=== PATIENT | female | born 1935 | race Two or more races ===

== ENCOUNTER 2020-09-24 14:06 | Outpatient (REF) | payer MEDICARE, MEDICAID, SELFPAY ==
--- NOTE | ~2020-09-24 | US_ITS ---
EXAMINATION: US PELVIS COMPLETE CLINICAL INFORMATION: Abnormal vaginal bleeding. COMPARISON: CT abdomen and pelvis with/without contrast 07/17/2019. TECHNIQUE: Transabdominal and transvaginal imaging of pelvis were performed. FINDINGS: The uterus is anteverted and anteflexed measuring 9.0 cm in length, 4.9 cm in AP and 6.8 cm in transverse dimension. The endometrium is abnormally thickened measuring 0.2 cm for a postmenopausal patient. There is a hypoechoic lesion in the posterior body of uterus consistent with a fibroid measuring 1.0 x 1.1 x 1.1 cm. Previously it measured 2.3 x 2.0 x 1.5 cm. There are several anechoic nabothian cysts seen in the cervix; some of them are simple and somewhat complex. Right ovary measures 2.86 x 1.98 x 2.34 cm and volume 6.9 mL. It appears unremarkable. The left ovary is not seen. There is no free fluid seen in the cul-de-sac. US/US transvaginal IMPRESSION: Abnormally thickened endometrium measuring 2.02 cm. Recommend gynecological consultation. Multiple simple and complex nabothian cysts in the cervix. Normal right ovary. Left ovary not seen.
--- NOTE | ~2020-09-24 | US_ITS ---
EXAMINATION: US PELVIS COMPLETE CLINICAL INFORMATION: Abnormal vaginal bleeding. COMPARISON: CT abdomen and pelvis with/without contrast 07/17/2019. TECHNIQUE: Transabdominal and transvaginal imaging of pelvis were performed. FINDINGS: The uterus is anteverted and anteflexed measuring 9.0 cm in length, 4.9 cm in AP and 6.8 cm in transverse dimension. The endometrium is abnormally thickened measuring 0.2 cm for a postmenopausal patient. There is a hypoechoic lesion in the posterior body of uterus consistent with a fibroid measuring 1.0 x 1.1 x 1.1 cm. Previously it measured 2.3 x 2.0 x 1.5 cm. There are several anechoic nabothian cysts seen in the cervix; some of them are simple and somewhat complex. Right ovary measures 2.86 x 1.98 x 2.34 cm and volume 6.9 mL. It appears unremarkable. The left ovary is not seen. There is no free fluid seen in the cul-de-sac. US/US pelvic complete IMPRESSION: Abnormally thickened endometrium measuring 2.02 cm. Recommend gynecological consultation. Multiple simple and complex nabothian cysts in the cervix. Normal right ovary. Left ovary not seen.
== END 2020-09-24 14:07 | disposition home or self-care (01) ==
LOC: HO.US 14:06
PROVIDERS: Visit Provider Family Medicine
DX: N93.9 Abnormal uterine and vaginal bleeding, unspecified (principal)
CPT/HCPCS: 76830; 76856

== ENCOUNTER 2020-10-20 13:01 | Outpatient (REF) | payer MEDICARE, MEDICAID, SELFPAY | END 2020-10-20 13:02 | disposition home or self-care (01) | LOC: HO.LAB 13:01 | PROVIDERS: PCP Nurse Practitioner Family; Visit Provider Obstetrics & Gynecology | DX: N95.0 Postmenopausal bleeding (principal); F41.9 Anxiety disorder, unspecified; N28.89 Other specified disorders of kidney and ureter; Z88.0 Allergy status to penicillin | CPT/HCPCS: 58100; 88305; 99212 ==

== ENCOUNTER → 2020-11-10 10:55 | Outpatient (BNVA) | payer MEDICARE, MEDICAID, SELFPAY | PROVIDERS: PCP Nurse Practitioner Family; Visit Provider Obstetrics & Gynecology | DX: Z13.89 Encounter for screening for other disorder (principal) | CPT/HCPCS: Q3014 ==

== ENCOUNTER 2020-11-19 15:52 | Outpatient (REF) | payer MEDICARE, MEDICAID, SELFPAY | END 2020-11-19 15:53 | disposition home or self-care (01) | LOC: HO.LAB 15:52 | PROVIDERS: PCP Nurse Practitioner Family; Visit Provider Obstetrics & Gynecology | DX: N95.0 Postmenopausal bleeding (principal) | CPT/HCPCS: 58100; 88305 ==

== ENCOUNTER → 2020-12-09 12:07 | Outpatient (BNVA) | payer MEDICARE, MEDICAID, SELFPAY | PROVIDERS: PCP Nurse Practitioner Family; Visit Provider Obstetrics & Gynecology | DX: N95.0 Postmenopausal bleeding (principal) | CPT/HCPCS: Q3014 ==

== ENCOUNTER → 2020-12-24 15:23 | Outpatient (BNVA) | payer MEDICARE, MEDICAID, SELFPAY | PROVIDERS: PCP Nurse Practitioner Family; Visit Provider Obstetrics & Gynecology | DX: N95.0 Postmenopausal bleeding (principal) | CPT/HCPCS: 99212 ==

== ENCOUNTER 2021-01-02 11:47 | Day surgery (SDC) | payer MEDICARE, MEDICAID, SELFPAY ==
--- NOTE | 2020-12-31 12:02 | HO.ANESPROP2 ---
Documented by User: Rosita Diaz 01/01/21 11:56 HPI - Anesthesia Eval Consult details Narrative: 85yo F for D&C Diagnostic Hysteroscopy, Poss Polypectomy, Poss Myomectomy H/O mitral regurg. Last echo 2017 with pending echo ordered by cardiology. Case reviewed with Dr Benitez. OK to proceed without updated ECHO. PMFSH Active Problems Active Problems: All Active Problems (Updated 12/24/20 @ 15:40 by Nima Black MD) Postmenopausal bleeding (Acute) Past Medical History Medical History (Updated 01/02/21 @ 12:55 by Georgina Benitez) Anxiety Arthritis Asthma Chest pain Constipation Dementia Fatigue Nonrheumatic mitral valve regurgitation [place] (obstructive sleep apnea) Osteoporosis Renal mass Family History Family History Mother Lung cancer Surgical History Surgical History History of appendectomy History of colonoscopy History of removal of cyst Hx of excision of mass Social History Social History Patient Tobacco Use Status: Never used Tobacco Use of substances other than those prescribed or required for medical reasons: No Are you DNR?: No Advance Directives: No Advance Directives Information Provided: Yes Meds Allergies Allergy/AdvReac Type Severity Reaction Status Date / Time Penicillins [PENICILLINS] Allergy Severe RASH,LIP Verified 01/02/21 12:04 SWELLING penicillin V Allergy Unknown Unknown Verified 01/02/21 12:04 Home Medications Medication Instructions Recorded Confirmed Last Taken Type atorvastatin 10 mg tablet 10 mg PO DAILY 10/20/20 12/24/20 Unknown History benzonatate 100 mg capsule 100 mg PO TID 10/20/20 12/24/20 Unknown History conjugated estrogens 0.625 mg/gram 0 mg VAGINAL 10/20/20 12/24/20 Unknown History vaginal cream duloxetine 20 mg capsule,delayed 20 mg PO BID 10/20/20 12/24/20 01/02/21 09:00 History release isosorbide mononitrate 30 mg 30 mg PO DAILY 10/20/20 12/24/20 01/02/21 09:00 History tablet,extended release 24 hr magnesium oxide 400 mg (241.3 mg 400 mg PO DAILY 10/20/20 12/24/20 01/02/21 09:00 History magnesium) tablet meclizine 25 mg tablet 25 mg PO TID PRN 10/20/20 12/24/20 Unknown History melatonin 3 mg tablet 3 mg PO BEDTIME 10/20/20 12/24/20 Unknown History meloxicam 7.5 mg tablet 7.5 mg PO BID 10/20/20 12/24/20 01/02/21 09:00 History memantine 10 mg tablet 10 mg PO BID 10/20/20 12/24/20 01/02/21 09:00 History olanzapine 5 mg tablet 5 mg PO BEDTIME 10/20/20 12/24/20 Unknown History trazodone 50 mg tablet 50 mg PO BEDTIME 10/20/20 12/24/20 Unknown History Exam Exam Date and Time: December 31, 2020 1202 Narrative Narrative: Echo 2017 Mild concentric LVH Overall LV systolic function is normal with EF 60-65% LA size is normal RV is normal in size and function Mild AR Mild to mod MR. Mild post leaflet prolapse with antierior directed jet that hugs the valve and atrial valve. Trace TR C/W prev Echo, MR severity seems to have reduced. Assessment and Plan Assessment Anesthesia Assessment: Chart Reviewed Documented by User: Georgina Benitez 01/02/21 12:57 [facility] Past Medical History Medical History (Updated 01/02/21 @ 12:55 by Georgina Benitez) Anxiety Arthritis Asthma Chest pain Constipation Dementia Fatigue Nonrheumatic mitral valve regurgitation [place] (obstructive sleep apnea) Osteoporosis Renal mass Family History Family History Mother Lung cancer Family history of problems with anesthesia: No Surgical History Surgical History History of appendectomy History of colonoscopy History of removal of cyst Hx of excision of mass History of Problems with Anesthesia: No Social History Social History Patient Tobacco Use Status: Never used Tobacco Use of substances other than those prescribed or required for medical reasons: No Are you DNR?: No Advance Directives: No Advance Directives Information Provided: Yes Meds Allergies Allergy/AdvReac Type Severity Reaction Status Date / Time Penicillins [PENICILLINS] Allergy Severe RASH,LIP Verified 01/02/21 12:04 SWELLING penicillin V Allergy Unknown Unknown Verified 01/02/21 12:04 Home Medications Medication Instructions Recorded Confirmed Last Taken Type atorvastatin 10 mg tablet 10 mg PO DAILY 10/20/20 12/24/20 Unknown History benzonatate 100 mg capsule 100 mg PO TID 10/20/20 12/24/20 Unknown History conjugated estrogens 0.625 mg/gram 0 mg VAGINAL 10/20/20 12/24/20 Unknown History vaginal cream duloxetine 20 mg capsule,delayed 20 mg PO BID 10/20/20 12/24/20 01/02/21 09:00 History release isosorbide mononitrate 30 mg 30 mg PO DAILY 10/20/20 12/24/20 01/02/21 09:00 History tablet,extended release 24 hr magnesium oxide 400 mg (241.3 mg 400 mg PO DAILY 10/20/20 12/24/20 01/02/21 09:00 History magnesium) tablet meclizine 25 mg tablet 25 mg PO TID PRN 10/20/20 12/24/20 Unknown History melatonin 3 mg tablet 3 mg PO BEDTIME 10/20/20 12/24/20 Unknown History meloxicam 7.5 mg tablet 7.5 mg PO BID 10/20/20 12/24/20 01/02/21 09:00 History memantine 10 mg tablet 10 mg PO BID 10/20/20 12/24/20 01/02/21 09:00 History olanzapine 5 mg tablet 5 mg PO BEDTIME 10/20/20 12/24/20 Unknown History trazodone 50 mg tablet 50 mg PO BEDTIME 10/20/20 12/24/20 Unknown History Exam Height,Weight and Vital Signs: Vital Signs Temp Pulse Resp BP Pulse Ox 01/02/21 12:12 97.7 F 72 18 143/79 H 92 Pertinent Lab Results Pertinent Lab Results: 01/02/21: 12 lead EKG- NSR 64. T wave abnormality ? lateral ischemia Narrative Narrative: EKG on monitor with PACs, PVCs, sometimes? lack of P waves.Will obtain 12 lead EKG Airway Mallampati Class: III TM Dist: >3cm Neck ROM: Full Denture: Upper Partial: Lower Heart: Irregular Lungs: CTAB Assessment and Plan Assessment Anesthesia Assessment: Anesthesia Plan Discussed and Chart Reviewed Final Anesthetic Review NPO: Yes ASA Class: III Final Preanesthetic Review: No Changes in Pt Med Stat, Meds/Allgs Chart Reviewed, Consent Obtained/Reviewed and Anes Risks/Benef Reviewed Patient Risk: Intermediate Procedure Risk: Low Assessment/Block/Sedation in SS: Assess/Block/Sedation-SS Anesthetic Plan Anesthetic Plan: GA Disposition: Standard PACU
--- NOTE | 2021-01-02 | ECG_ITS ---
Test Reason : PREOP Blood Pressure : / mmHG Vent. Rate : 064 BPM Atrial Rate : 064 BPM P-R Int : 154 ms QRS Dur : 090 ms QT Int : 430 ms P-R-T Axes : 035 -07 110 degrees QTc Int : 443 ms Artifact in tracing Normal sinus rhythm T wave abnormality, consider lateral ischemia Abnormal ECG When compared with ECG of 13-AUG-2017 10:48, No significant change was found Referred By: Georgina Benitez Electronically Signed By:MARY CHOWDHURY
--- NOTE | 2021-01-02 12:11 | PC.NURSE ---
pt denies hx asthma.
[2021-01-02 12:12] VITALS: BP 143/79; PULSE 72; RESP 18; TEMP 36.5; O2SAT 92; BMI 34.3
[2021-01-02] MEDS: Lactated Ringers 1,000 ML 50 ML IVCONT (12:43)
--- NOTE | 2021-01-02 12:46 | MHC.SHP ---
Pre-Procedural Eval Section A The patient is an INPATIENT: No Changes since office visit: No Cold of Flu in the past 2 weeks, No New Medical Problems, No Changes in Medication and No Patient answered all questions The History & Physical has been completed within 30 days and I have reviewed it.: Yes Section B Chief Complaint: postmenopausal bleeding Allergies: Allergies Allergy/AdvReac Type Severity Reaction Status Date / Time Penicillins [PENICILLINS] Allergy Severe RASH,LIP Verified 01/02/21 12:04 SWELLING penicillin V Allergy Unknown Unknown Verified 01/02/21 12:04 Plan Diagnosis/Plan: Unchanged I have reviewed the history and physical and performed a pertinent physical examination on my patient. No changes have occurred unless specified.
--- NOTE | 2021-01-02 13:40 | P.BOP_ITS ---
Brief Operative Note Date of Service: 01/02/21 Pre-op diagnosis: Postmenopausal bleeding Post-op diagnosis: same ( endometrial polyp) Procedure: Hysteroscopy D&C, Polypectomy Surgeon: Nima Black MD Anesthesia: MAC Was an Pipe Blanks Cut Off Saw Operator used for this Procedure?: No Estimated blood loss (mL): 0 Pathology: other (Endometrial Scrapping. Polyp) Condition: stable Disposition: PACU
--- NOTE | 2021-01-02 13:40 | P.OP_ITS ---
Operative Note Operative Note Date of Service: 01/02/21 Narrative: Preop Diagnosis: postmenopausal bleeding Operation: Diagnostic Hysteroscopy, Dilataion & Curettage and polypectomy Post Op Diagnosis: Endometrial Polyp QBL: Minimal Anesthesia: MAC Surgeon: Nima Black MD Hemp Fiber Taker Off: None Complication: None Pathology: Endometrial Scrapings, Endometrial polyp Complication: None Pathology: Endometrial Scrapings, Endometrial polyp Procedure: The patient was put in the dorsal lithotomy position, scrubbed, and draped in the usual manner. A sterile speculum was inserted in the patient's vagina. The anterior lip of the cervix was grasped with a single tooth tenaculum. The cervix was dilated up to 5 mm, then the scope was inserted in the patient's uterus. Inspection revealed endometrial polyp. The Myosure Reach device was used; it was introduced through the operative channel and polypectomy done with no complications. At the end of the procedure, all instruments were taken out of the patient uterine and vaginal cavity. The single tooth tenaculum was removed and homeostasis was assured using pressure,. The patient tolerated the procedure well and was transferred to the PACU in a stable condition.
[2021-01-02 13:43] VITALS: BP 146/84; PULSE 71; RESP 16; TEMP 36.6; O2SAT 99
[2021-01-02 13:48] VITALS: BP 107/69; PULSE 71; RESP 18; O2SAT 95
[2021-01-02 13:53] VITALS: BP 105/58; PULSE 70; RESP 18; O2SAT 95
[2021-01-02 13:58] VITALS: BP 145/73; PULSE 77; RESP 18; O2SAT 95
[2021-01-02 14:13] VITALS: BP 141/65; PULSE 61; RESP 16; TEMP 36.6; O2SAT 96
== END 2021-01-02 14:30 ==
LOC: HO.SSS 11:48
PROVIDERS: PCP Nurse Practitioner Family; Visit Provider Obstetrics & Gynecology
PROC: 0UDB8ZX Extraction of Endometrium, Via Natural or Artificial Opening Endoscopic, Diagnostic (ICD-10-PCS; CPT 58558; principal; 2021-01-02 13:50)
DX: N95.0 Postmenopausal bleeding (principal); C54.1 Malignant neoplasm of endometrium; N28.89 Other specified disorders of kidney and ureter; M19.90 Unspecified osteoarthritis, unspecified site; F41.9 Anxiety disorder, unspecified; M81.0 Age-related osteoporosis without current pathological fracture; Z79.899 Other long term (current) drug therapy; Z88.0 Allergy status to penicillin
CPT/HCPCS: 58558; 36415; 81288; 88305; 88341; 88342; 93005; J1100; J2405

== ENCOUNTER → 2021-01-07 12:23 | Outpatient (BNVA) | payer MEDICARE, MEDICAID, SELFPAY | PROVIDERS: Visit Provider Obstetrics & Gynecology | DX: C54.1 Malignant neoplasm of endometrium (principal) | CPT/HCPCS: Q3014 ==

== ENCOUNTER 2021-08-13 12:55 | Outpatient (REF) | payer MEDICARE, MEDICAID, SELFPAY ==
--- NOTE | ~2021-08-13 | MM_ITS ---
EXAMINATION: MM SCREENING DIGITAL BREAST TOMOSYNTHESIS, BILATERAL CLINICAL INFORMATION: Screening. Asymptomatic. COMPARISON: Mammography: August 14, 2018 and studies dating back to November 28, 2013 TECHNIQUE: Digital breast tomosynthesis is performed in both the craniocaudal and mediolateral oblique views along with computer-aided detection (CAD). Synthesized 2D images are generated from the tomosynthesis. FINDINGS: There are scattered areas of fibroglandular density (ACR BI-RADS breast composition Category b). There are no significant masses, abnormal calcifications, or other abnormalities. MM/MM tomosynthesis screening BI IMPRESSION: There are no significant changes from prior study. ASSESSMENT: BI-RADS 1: Negative RECOMMENDATION: Routine annual mammography screening. This patient's information was entered into a reminder system with a target due date for their next mammogram.
--- NOTE | ~2021-08-13 | MM_ITS ---
EXAMINATION: BONE DENSITOMETRY CLINICAL INDICATION: Osteoporosis. COMPARISON: Previous BD dated 06/12/2019 and baseline BD dated 02/23/2011. TECHNIQUE: Using a [employer]RI ([employer]) DXA System (software version: 13.1) manufactured by [employer], dual-energy x-ray absorptiometry was performed of the lumbar spine and left hip. The images are of good technical quality. Summary results are attached. FINDINGS: AP SPINE L1-L4: Current: BMD 1.112 g/cm2, Z-score 0.8, T-score -0.6, normal, 5.3% decrease from previous, 6.4% increase from baseline (<5% change is not significant). Prior: BMD 1.174 g/cm2. Baseline: BMD 1.045 g/cm2. LEFT FEMUR, NECK: Current: BMD 0.735 g/cm2, Z-score -0.1, T-score -2.2, osteopenia. Prior: BMD 0.679 g/cm2. Baseline: BMD 0.709 g/cm2. LEFT FEMUR, TOTAL: Current: BMD 0.843 g/cm2, Z-score 0.6, T-score -1.3, osteopenia, 1.1% decrease from previous, 7.5% increase from baseline (<5% change is not significant). Prior: BMD 0.852 g/cm2. Baseline: BMD 0.784 g/cm2. IDENTIFIED RISK FACTORS: Rheumatoid arthritis, osteoporosis, menopause, hysterectomy, bilateral oophorectomy. HISTORY OF FRACTURE: None listed. MEDICATIONS: Vitamin D. MM/XR DEXA axial skeleton IMPRESSION: 1. DIAGNOSIS: Osteopenia based on the lowest T-score value of -2.2 in the femoral neck applying World Health Organization criteria. 2. 10-YEAR FRACTURE RISK PREDICTION, FRAX: Major osteoporotic fracture (clinical spine, forearm, hip or shoulder) 20.4%. Hip fracture 7.2%. 3. Treatment Recommendations: NOF guidelines recommend consideration for treatment in postmenopausal women and men age 50 and older presenting with the following: -A hip or vertebral (clinical or morphometric) fracture. -T-score less than or equal to -2.5 at the femoral neck or spine after appropriate evaluation to exclude secondary causes. -Low bone mass at the hip or spine and a 10-year fracture probability by FRAX of greater than or equal to 3% for hip fracture or greater than or equal to 20% for major osteoporotic fracture based on the [place] adapted WHO algorithm. 4. Other Recommendations: All treatment decisions require clinical judgment and consideration of individual patient factors, including patient preferences, comorbidities, previous drug use, risk factors not captured in the FRAX model (e.g. frailty, falls, vitamin D deficiency, increased bone turnover, interval significant decline in bone density) and possible under or overestimation of fracture risk by FRAX. Additional medical evaluation for secondary cause of low bone mineral density may be appropriate. FUTURE SCAN RECOMMENDATION: People with diagnosed cases of osteoporosis or at high risk for fracture should have regular bone mineral density tests. For patients eligible for Medicare, routine testing is allowed once every 2 years. The testing frequency can be increased to one year for patients who have rapidly progressing disease, those who are receiving or discontinuing medical therapy to restore bone mass, or have additional risk factors.
== END 2021-08-13 12:56 | disposition home or self-care (01) ==
LOC: HO.MAMMO 12:55
PROVIDERS: PCP Nurse Practitioner Primary Care; Visit Provider Nurse Practitioner Primary Care
DX: Z12.31 Encounter for screening mammogram for malignant neoplasm of breast (principal); Z13.820 Encounter for screening for osteoporosis; Z78.0 Asymptomatic menopausal state; M05.9 Rheumatoid arthritis with rheumatoid factor, unspecified; M85.80 Other specified disorders of bone density and structure, unspecified site; Z79.899 Other long term (current) drug therapy
CPT/HCPCS: 77063; 77067; 77080

== ENCOUNTER 2022-02-19 11:05 | Outpatient (REF) | payer MEDICARE, MEDICAID, SELFPAY ==
--- NOTE | ~2022-02-19 | XR_ITS ---
EXAMINATION: XR HIP, LEFT CLINICAL INFORMATION: Pain. COMPARISON: Radiographs dated 02/10/2011. TECHNIQUE: AP and frog-leg lateral views of the left hip. FINDINGS: Bones and soft tissues are normal. No fracture. Alignment is anatomic. Hip joint space is maintained. XR/XR hip LT min 2V IMPRESSION: Normal left hip.
== END 2022-02-19 11:06 | disposition home or self-care (01) ==
LOC: HO.XRAY 11:05
PROVIDERS: PCP Nurse Practitioner Primary Care; Visit Provider Nurse Practitioner Primary Care
DX: M25.552 Pain in left hip (principal)
CPT/HCPCS: 73502

== ENCOUNTER 2022-08-18 12:35 | Outpatient (REF) | payer MEDICARE, MEDICAID, SELFPAY ==
--- NOTE | ~2022-08-18 | MM_ITS ---
EXAMINATION: MM SCREENING DIGITAL BREAST TOMOSYNTHESIS, BILATERAL CLINICAL INFORMATION: Screening. Asymptomatic. COMPARISON: Mammography: 08/13/2021, 08/14/2018, 02/08/2018, 07/25/2017, 06/28/2017 TECHNIQUE: Digital breast tomosynthesis is performed in both the craniocaudal and mediolateral oblique views along with computer-aided detection (CAD). Synthesized 2D images are generated from the tomosynthesis. FINDINGS: There are scattered areas of fibroglandular density (ACR BI-RADS breast composition Category b). There is fine fibronodular parenchymal pattern similar to prior studies. No developing density or interval significant mass or architectural abnormality or abnormal calcifications. Incidental low left axillary tail node on MLO view is stable. The axilla and skin contours are unremarkable. No significant changes. MM/MM tomosynthesis screening BI IMPRESSION: No mammographic evidence of malignancy. ASSESSMENT: BI-RADS 2: Benign RECOMMENDATION: Routine annual mammography screening. This patient's information was entered into a reminder system with a target due date for their next mammogram.
== END 2022-08-18 12:36 | disposition home or self-care (01) ==
LOC: HO.MAMMO 12:35
PROVIDERS: Visit Provider Nurse Practitioner Primary Care
DX: Z12.31 Encounter for screening mammogram for malignant neoplasm of breast (principal)
CPT/HCPCS: 77063; 77067

== ENCOUNTER 2024-01-03 14:12 | Outpatient (REF) | payer MEDICARE, MEDICAID, SELFPAY ==
[2024-01-03 16:39] LABS: Anion Gap 9 (12-20); Blood Urea Nitrogen 14 mg/dL (9-16); Calcium 9.8 mg/dL (8.4-10.2); Carbon Dioxide 32 mmol/L (22-29); Chloride 106 mmol/L (96-108); Cholesterol 187 mg/dL (<200); Estimated Glomerular Filt Rate 56; Glucose Random 91 mg/dL (60-115); HDL Cholesterol 61 mg/dL (>40); LDL Cholesterol Calculated 106 mg/dL (<100); Potassium 4.3 mmol/L (3.3-5.1); Sodium 143 mmol/L (135-145); Triglycerides 104 mg/dL (<150)
[2024-01-03 16:43] LABS: Creatinine Urine 301.04 mg/dL; Microalbum/Creatinine Ratio Ur 6.3 ug/mg cr (<30)
== END 2024-01-03 14:13 | disposition home or self-care (01) ==
LOC: HO.HHCL 14:12
PROVIDERS: Visit Provider Nurse Practitioner Primary Care
DX: I10 Essential (primary) hypertension (principal); E78.00 Pure hypercholesterolemia, unspecified
CPT/HCPCS: 36415; 80048; 80061; 82043; 82570

== ENCOUNTER 2024-01-23 10:37 | Outpatient (AMB) | payer MEDICARE, MEDICAID, SELFPAY ==
--- NOTE | 2024-01-23 10:41 | MHC.OFFVIS ---
Vital Signs 01/23/24 10:47 Weight 192 lb BP 130/73 Blood Pressure Location Rt brachial Position Sitting Pulse 66 Intake Visit Reasons: non-healing skin lesion pentecostalism Intake Note: This patient presents for an assessment for left pentecostalism non-healing skin lesion. Patient c/o: reports no pain. Learning Disabilities Resource Teacher Required: No Accompanied by: Other Relationship Allergies Penicillins [PENICILLINS] Allergy (Severe, Verified 01/23/24 10:48) RASH,LIP SWELLING penicillin V Allergy (Unknown, Verified 01/23/24 10:48) Unknown Medication List - Last Reconciled 01/23/24 by Mihir Hall MD atorvastatin 10 mg PO DAILY benzonatate 100 mg PO TID conjugated estrogens 0 mg vaginal duloxetine 20 mg PO BID isosorbide mononitrate ER 30 mg PO DAILY magnesium oxide 400 mg PO DAILY meclizine 25 mg PO TID PRN melatonin 3 mg PO BEDTIME meloxicam 7.5 mg PO BID memantine 10 mg PO BID olanzapine 5 mg PO BEDTIME trazodone 50 mg PO BEDTIME HPI HPI non-healing skin lesion pentecostalism: Details: [age] year old female referred for skin lesion on the left pentecostalism. According to her daughter, she has had this for about 6 months. This does not seem to heal at all and seems to keep getting crusty. The crusty covering seems to peel off frequently but this would just repeat the cycle all over. This may have increased a little bit in size. She otherwise seems to be healthy for her age. [facility] Medical History (Updated 01/23/24 @ 11:02 by Mihir Hall MD) Scalp lesion Fatigue Chest pain Constipation Osteoporosis [place] (obstructive sleep apnea) Asthma Dementia Nonrheumatic mitral valve regurgitation Arthritis Anxiety Renal mass Surgical History Hx of excision of mass History of colonoscopy History of removal of cyst History of appendectomy Family History Mother Lung cancer Social History Patient Tobacco Use Status: Never used Tobacco Review of Systems Const Denies chills and Denies fever(s) Card Denies chest pain, Denies dyspnea and Denies dyspnea on exertion Resp Denies cough, Denies dyspnea and Denies dyspnea on exertion GI Denies hematochezia and Denies change in bowel habits Denies hematuria Musc Denies back pain and Denies limited range of motion Neuro Denies focal weakness and Denies convulsions Psych Denies depression and Denies mood swings Physical Exam Vital Signs: Last Vital Signs Pulse 66 01/23/24 10:47 BP 130/73 01/23/24 10:47 Const General: comfortable and no acute distress Orientation/consciousness: patient oriented x3 HEENT Other: Left temporal area - irregular, elevated crusty skin lesion, about 1 cm in widest dimension Neck Neck: Yes no lymphadenopathy Resp Auscultation: clear to auscultation bilaterally Cardio Rhythm: regular rhythm GI Palpation (GI): Soft to palpation, nontender and no guarding Neuro General: patient oriented x3 Assessment & Plan Assessment & Plan (1) Scalp lesion: Code(s): L98.9 - Disorder of the skin and subcutaneous tissue, unspecified Category: Medical Plan: She has this crusty elevated skin lesion on the left temporal area as described above. She wants to proceed with excision. I explained the technique of excision under local anesthesia. I reviewed the risks including but not limited to bleeding and infections, as well as the benefits and alternatives. She understands and wants to proceed This will be scheduled in the office under local anesthesia on her next visit. Coding Level of Care Code New Pt Level 3 (95031) Diagnoses Scalp lesion L98.9
[2024-01-23 10:47] VITALS: BP 130/73; PULSE 66
== END 2024-01-23 11:04 | disposition home or self-care (01) ==
PROVIDERS: PCP Nurse Practitioner Primary Care; Visit Provider Surgery
DX: L98.9 Disorder of the skin and subcutaneous tissue, unspecified (principal)
CPT/HCPCS: 99204

== ENCOUNTER → 2024-01-23 10:37 | Outpatient (BNVA) | payer MEDICARE, MEDICAID, SELFPAY | PROVIDERS: PCP Nurse Practitioner Primary Care; Visit Provider Surgery | DX: L98.9 Disorder of the skin and subcutaneous tissue, unspecified (principal) | CPT/HCPCS: 99202 ==

== ENCOUNTER 2024-02-01 10:58 | Outpatient (AMB) | payer MEDICARE, MEDICAID, SELFPAY ==
--- NOTE | 2024-02-01 11:00 | MHC.OFFVIS ---
Intake Visit Reasons: excision of lesion left temporal area Intake Note: Office procedure: excision of lesion left temporal area. Quill Reamer Required: No Accompanied by: Daughter Allergies Penicillins [PENICILLINS] Allergy (Severe, Verified 02/01/24 11:12) RASH,LIP SWELLING penicillin V Allergy (Unknown, Verified 02/01/24 11:12) Unknown HPI HPI excision of lesion left temporal area: Details: She is here for an excision of a skin lesion on the left temporal area. [facility] Medical History Scalp lesion Fatigue Chest pain Constipation Osteoporosis [place] (obstructive sleep apnea) Asthma Dementia Nonrheumatic mitral valve regurgitation Arthritis Anxiety Renal mass Surgical History Hx of excision of mass History of colonoscopy History of removal of cyst History of appendectomy Family History Mother Lung cancer Social History Patient Tobacco Use Status: Never used Tobacco Office Procedures Excision Details: She was in reclining position. The area of the left temporal scalp was prepped and draped. Lidocaine 1% was used for local anesthesia. I made an elliptical incision around this skin lesion using a blade 15. And this was carried down through the full-thickness of the skin and part of the subcutaneous layer. I excise this entire lesion along with part of the subcutaneous layer. The lesion was about 1.2 cm in widest dimension. I closed the incision with full-thickness nylon 4-0 interrupted sutures. Bacitracin dressings were applied and the procedure was completed. She tolerated procedure well. There were no immediate complications. [id number] scalp/neck/hands/feet/genitalia 1.1cm-2cm Procedure code (CPT) selection complete Assessment & Plan Assessment & Plan (1) Scalp lesion: Code(s): L98.9 - Disorder of the skin and subcutaneous tissue, unspecified Category: Medical Plan: Excision was done under local anesthesia. She tolerated procedure well. She was given wound care instructions. Coding Level of Care Code Procedure Only Diagnoses Scalp lesion L98.9 CPT Codes Scalp/Neck/Hands/Feet/Genetalia - CPT: 85655-[id number] scalp/neck/hands/feet/genitalia 1.1cm-2cm ([id number])
== END 2024-02-01 11:43 | disposition home or self-care (01) ==
PROVIDERS: PCP Nurse Practitioner Primary Care; Visit Provider Surgery
DX: C44.319 Basal cell carcinoma of skin of other parts of face (principal)
CPT/HCPCS: 11642

== ENCOUNTER 2024-02-01 10:58 | Outpatient (REF) | payer MEDICARE, MEDICAID, SELFPAY | END 2024-02-01 10:59 | disposition home or self-care (01) | LOC: HO.LNP 10:58 | PROVIDERS: PCP Nurse Practitioner Primary Care; Visit Provider Surgery | DX: L98.9 Disorder of the skin and subcutaneous tissue, unspecified (principal) | CPT/HCPCS: 11642; 88304; 88305 ==

== ENCOUNTER 2024-02-15 10:56 | Outpatient (AMB) | payer MEDICARE, MEDICAID, SELFPAY ==
--- NOTE | 2024-02-15 10:58 | A.OFFVIS_ITS ---
Vital Signs 02/15/24 11:00 Height 5 ft 3 in Weight 192 lb 0.009 oz BMI 34.0 Intake Visit Reasons: s/p excision of lesion left temporal area Intake Note: Patient is seen in office for post op assessment post excision of lesion left temporal area. 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 She tolerated procedure well. She is here have his sutures removed. [facility] Medical History Scalp lesion Fatigue Chest pain Constipation Osteoporosis [place] (obstructive sleep apnea) Asthma Dementia Nonrheumatic mitral valve regurgitation Arthritis Anxiety Renal mass Surgical History History of surgical removal of lesion (~02/01/24) Hx of excision of mass History of colonoscopy History of removal of cyst History of appendectomy Family History Mother Lung cancer Social History Patient Tobacco Use Status: Never used Tobacco Review of Systems Const Denies chills and Denies fever(s) Card Denies chest pain, Denies dyspnea and Denies dyspnea on exertion Resp Denies cough, Denies dyspnea and Denies dyspnea on exertion GI Denies hematochezia and Denies change in bowel habits Denies hematuria Musc Denies back pain and Denies limited range of motion Neuro Denies focal weakness and Denies convulsions Psych Denies depression and Denies mood swings Physical Exam Vital Signs: BMI result Body Mass Index 34.0 Const General: comfortable and no acute distress HEENT Other: Excision site on the left temporal area is well healed, not infected, sutures intact Assessment & Plan Assessment & Plan (1) Scalp lesion: Code(s): L98.9 - Disorder of the skin and subcutaneous tissue, unspecified Category: Medical Plan: Status post excision. Her incision is well healed. I removed all her sutures. The wound edges remained well apposed. Her path report shows a basal cell carcinoma. The margins were negative. She does not require any further intervention for this. Coding Level of Care Code Global (52274) Diagnoses Scalp lesion L98.9
[2024-02-15 11:00] VITALS: BMI 34.0
== END 2024-02-15 11:32 | disposition home or self-care (01) ==
PROVIDERS: PCP Nurse Practitioner Primary Care; Visit Provider Surgery
DX: L98.9 Disorder of the skin and subcutaneous tissue, unspecified (principal)
CPT/HCPCS: 99024

== ENCOUNTER → 2024-02-15 10:56 | Outpatient (BNVA) | payer MEDICARE, MEDICAID, SELFPAY | PROVIDERS: PCP Nurse Practitioner Primary Care; Visit Provider Surgery | DX: L98.9 Disorder of the skin and subcutaneous tissue, unspecified (principal) | CPT/HCPCS: 99212 ==

== ENCOUNTER 2024-10-25 10:16 | Outpatient (REF) | payer MEDICARE, MEDICAID, SELFPAY ==
--- NOTE | ~2024-10-25 | MM_ITS ---
EXAMINATION: DXA BONE DENSITY AXIAL HISTORY: osteoporosis TECHNIQUE: [employer] Dual energy absorptiometry (DEXA) of the lumbar spine, total left hip, and femoral neck was performed. COMPARISON: Comparison is made with the prior examination dated 08/13/2021. FINDINGS: The bone mineral density of the lumbar spine is 1.130 with a T-score of -0.4, and a Z-score of 0.8. This is indicative of normal bone mineral density.1 This represents a BMD change of .6% compared to the prior exam. This is not statistically significant. The bone mineral density of the left total hip is 0.802 with a T-score of -1.6, and a Z-score of 0.3. This is indicative of osteopenia. This represents a BMD change of -4.9% compared to the prior exam. This is statistically significant. The bone mineral density of the left femoral neck is 0.701 with a T-score of -2.4, and a Z-score of -0.3. This is indicative of osteopenia. This represents a BMD change of -4.6% compared to the prior exam. FRACTURE RISK: The FRAX index suggests a ten year probability of major osteoporotic fracture of 18.6%, and of hip fracture 7.0%. MM/XR DEXA axial skeleton IMPRESSION: Based on bone mineral density, and according to World Health Organization (WHO) criteria, the diagnosis is consistent with osteopenia. All bone density values are in grams per centimeter squared (g/cm2). Statistically, 68% of repeat scans fall within 1 SD (+/- 0.010 g/cm2 for AP spine L1-L4) and 1 SD (+/- 0.012 g/cm2 for femur total) FRAX is a trademark of the [employer]'s [employer] Metabolic Bone Disease, a World Health Organization (WHO) Collaborating Center. Electronically signed by: Adalberto Andrew MD 10/25/2024 11:13 AM EDT
--- OUTSIDE RECORDS SUMMARY | 2024-10-25 12:02 | XMS_ITS | Clinical Summary ---
Author Organization [employer] Address [address] [place] [address] [address] [place] [address] Care Team Providers Care Granite Polisher Name Role Phone Jeff Maharaj Primary Care Provider [phone] Allergies Active Allergy Reactions Criticality Noted Date Comments Amitriptyline Dizziness 03/24/2021 Baclofen Dizziness 05/24/2018 Penicillins 09/01/2010 Other reaction(s): lips swelled, Swelling to Lips, unspecified Tolerates cefepime Medications albuterol 108 (90 Base) MCG/ACT inhaler Inhale 2 puffs every 4 (four) hours. 07/01/20 21 Active calcium carbonate 1500 (600 Ca) MG tablet Take 1 tablet by mouth every 12 (twelve) hours. Active Diclofenac Sodium 1 % gel APPLY 2 GRAMS TOPICALLY TO AFFECTED AREA(S) 4 TIMES A DAY 02/20/20 22 Active DULoxetine (Cymbalta) [address] capsule Take 1 capsule by mouth every 12 (twelve) hours. 05/24/20 19 Active memantine (Namenda) 10 MG tablet Take 10 mg by mouth 2 times daily. 06/27/20 22 Active OLANZapine (ZyPREXA) 5 MG tablet Take 1 tablet by mouth at bedtime. 06/23/20 22 Active traZODone (Desyrel) 150 MG tablet Take 150 mg by mouth at bedtime. 06/10/20 22 Active zoster vaccine-recombi nant adjuvanted (Shingrix) 50 MCG/0.5ML vaccine Inject 0.5 mL into the muscle. 06/30/20 21 Active atorvastatin (Lipitor) 10 MG tabletIndicatio ns:Hypercholest erolemia TAKE 1 TABLET BY MOUTH EVERYDAY AT BEDTIME 90 tablet 1 06/28/20 24 Active ketoconazole (NIZOral) 2 % shampooIndicati ons:Seborrheic dermatitis Apply topically 2 (two) times a week. 120 mL 8 07/30/19 25 Active isosorbide mononitrate ER (Imdur) 30 MG 24 hr tabletIndicatio ns:Benign essential HTN TAKE 1 TABLET (30 MG) BY MOUTH IN THE MORNING. DO NOT CRUSH OR CHEW. 90 tablet 1 07/31/19 25 Active magnesium oxide (Mag-Ox) 400 (240 Mg) MG tablet Take 1 tablet (400 mg) by mouth Once per day. 90 tablet 1 10/02/19 25 Active magnesium oxide (Mag-Ox) 400 (240 Mg) MG tablet TAKE 1 TABLET (400 MG) BY MOUTH IN THE MORNING 90 tablet 1 06/08/20 24 025 Discontinued(Re order (will not trigger notification to Pharmacy)) Active Problems Problem Noted Date Diagnosed Date Dysuria 05/24/2023 05/24/2023 Osteopenia 09/30/2022 Overview (12/15/2022): Repeat DEXA 07/2023 Benign essential HTN 09/30/2022 Constipation 08/09/2022 Dizziness 08/09/2022 Malignant neoplasm of endometrium of corpus uter i 08/09/2022 Overview (12/15/2022): S/p DIRK/BSO 02/03/2021 Osteoarthritis 08/09/2022 Senile osteoporosis 08/09/2022 Non-rheumatic mitral regurgitation 03/06/2018 Anxiety 05/05/2015 Dementia 05/05/2015 Hypercholesterolemia 05/05/2015 Mild intermittent asthma 05/05/2015 Obstructive sleep apnea syndrome 05/05/2015 Encounters Date Type Department Care Team Description 10/01/2024 2:00 PM EDT Office Visit [facility] [address] [place] [phone] Jeff Maharaj ANP Benign essential HTN (Primary Dx); Dementia without behavioral disturbance, psychotic disturbance, mood disturbance, or anxiety, unspecified dementia severity, unspecified dementia type (CMS/HCC); Constipation, unspecified constipation type; Senile osteoporosis; Encounter for immunization; Numbness and tingling in right hand; Dietary counseling; Exercise counseling 10/01/2024 Travel 09/28/2024 Population Health Risk Score [facility] () Department [address] [place] [phone] Provider, Population Health Generic 09/24/2024 Patient Outreach [facility] [address] [place] [phone] Jeff Maharaj ANP Pre-visit Planning ((Unable to reach for PVP screening, LVM)) 07/31/[address] [phone] Jeff Maharaj ANP Benign essential HTN 07/30/[address] [phone] Jewel Hamilton MA September recall 07/27/2024 9:45 AM EST Office Visit [address] [phone] Maksmi Higginbotham MD Seborrheic dermatitis (Primary Dx); History of basal cell carcinoma (BCC); Skin cancer screening 07/27/2024 Travel from Last 3 Months Immunizations Name Administration Dates Next Due INFLUENZA VACCINE QUADRIVALE NT RECOMBINANT PRESERVATIVE FREE RIV4 04/24/2020 Influenza High-dose Quadriva lent Preservative Free 09/13/2023,04/13/2022,04/15/2021 Influenza injectable quadriv alent preservative free 08/17/2016 Influenza, IIV3, injectable 08/18/2017,1 ,05/06/2014,06/25 Influenza, Split (incl. jerilyn fied surface antigen) 03/30/2013,03/15/2012 Influenza, seasonal, injecta ble, preservative free 10/01/2024 Pfizer Covid-19 Vaccine 12+ 04/15/2021,,08/28/2020 Pneumococcal Conjugate PCV 13 08/17/2016, 016 Pneumococcal Conjugate PCV 20 09/26/2023 Pneumococcal Polysaccharide PPSV23 05/06/2014,,06/02/2005 TD (adult), 2 Lf tetanus tox oid, preservative free, adsorbed 04/13/2022 Tdap 03/15/2012 Social History Tobacco Use Types Packs/Day Years Used Date Smoking Tobacco: Never Passive Smoke Exposure: Never Smokeless Tobacco: Never Tobacco Cessation:Counseling Given: Not Answered Alcohol Use Standard Drinks/Week Comments Never 0 (1 standard drink = 0.6 oz pur e alcohol) Depression Answer Date Recorded Patient Health Questionnaire-9 Score 0 01/03/2024 Patient Health Questionnaire-9 Score 0 01/03/2024 Last PHQ-9: Questionnaire Data Not on file 0 01/03/2024 Housing Stability Answer Date Recorded What is your housing situation today? I have margi salas 05/24/[address] you li ve. Do you have problems with any of the following? None of the above 05/24/2023 Food Insecurity Answer Date Recorded Within the past 12 months, y ou worried that your food would run out before you got money to buy more: Never True 05/24/2023 Within the past 12 months,th e food you bought just didn't last and you didn't have enough money to get more: Never True 01/2023 Transportation Answer Date Recorded In the past 12 months, has l ack of transportation kept you from medical appts, meetings, work or from getting things needed for daily living? No 05/24/2023 Utilities Answer Date Recorded In the past 12 months, has t he electric, gas, oil or water company threatened to shut off services in your home? No 05/24/2023 Depression Answer Date Recorded Patient Health Questionnaire-2 Score 0 01/03/2024 Comments Unknown Sex and Gender Information Value Date Recorded Sex Assigned at Female 05/17/2022 10:21 AM EDT Legal Sex Female 10:21 AM EDT Gender Identity Female 05/17/2022 10:21 AM EDT Sexual Orientation Straight 05/17/2022 10 :21 AM EDT Last Filed Vital Signs Vital Sign Reading Time Taken Comments Blood Pressure 147/85 10/01/2024 2:00 PM EDT Pulse 92 10/01/2024 2:00 PM EDT Temperature 36.2 ??C (97.1 ??F) 10/01/2024 2:00 PM ED T Respiratory Rate 16 10/01/2024 2:00 PM EDT Oxygen Saturation 90% 10/01/2024 2:00 PM EDT Inhaled Oxygen Concentration - - Weight 85.5 kg (188 lb 6.4 oz) 10/01/2024 2:00 P M EDT Height 160 cm (5' 3 ) 10/01/2024 2:00 PM EDT Body Mass Index 33.37 10/01/2024 2:00 PM EDT Plan of Treatment Health Maintenance Due Date Last Done Comments Zoster Vaccines (1 of 2) 12/04/1985 RSV Patients and Patients Aged 60 years or older (1 - 1-dose 75+ series) 12/04/2010 COVID-19 Vaccine ( season) 2024 02/19/2022, 04/15/2021, 09/18/2020, Additional history exists SDOH Screening 09/14/2024 09/15/2023 Depression Screening 01/02/2025 01/03/2024, 01/03/20 Alcohol/Substance Use Screening 10/01/2025 10/01/2024 Tobacco Screening 10/01/2025 10/01/2024 Lipid Panel 01/02/2029 01/03/2024, 11/0 03/2022, 10/06/2020 DTaP/Tdap/Td Vaccines (3 - Td or Tdap) 04/13/2032 04/13/2022, 03/15/2012 Pneumococcal Vaccine: 50+ Years Completed 09/26/2023, 08/17/2016, 09/01/2015, Additional history exists Influenza Vaccine Completed 10/01/2024, , 04/13/2022, Additional history exists HIB Vaccines Aged Out No longer eligi ble based on patient's age to complete this topic HPV Vaccines Aged Out No longer eligi ble based on patient's age to complete this topic Hepatitis A Vaccines Aged Out No long er eligible based on patient's age to complete this topic Hepatitis B Vaccines Aged Out No long er eligible based on patient's age to complete this topic IPV Vaccines Aged Out No longer eligi ble based on patient's age to complete this topic Meningococcal Vaccine Aged Out No eunice ricardo eligible based on patient's age to complete this topic RSV under 20 months Aged Out No longe r eligible based on patient's age to complete this topic Rotavirus Vaccines Aged Out No longer eligible based on patient's age to complete this topic Procedures Procedure Name Priority Date/Time Associated Diagnosis Comments BD DEXA AXIAL Routine 10/25/2024 10:30 AM EDT Senile osteoporosis LIPID PANEL, STANDARD Routine 01/03/2024 2:13 PM EDT Hypercholesterolemia from Last 3 Months or Most Recently Relevant to Health Maintenance Results * BD DEXA Axial (10/25/2024 10:30 AM EDT) Anatomical Region Laterality Modality Body Radiographic Cecille ging 10/25/2024 10:3 0 AM EDT Narrative 10/25/2024 11:15 AM EDT ? [facility] ? [address] ?[place] [address] ?[phone] ? Mammography Report ? Signed ? Patient: Solorzano,Benta ?MR#: [id number] ?? 2 ? : 1935 ?Acct:[id number] ? Age/Sex: 88 / F ?ADM Date: // ? Loc: HO.MAMMO ? Attending Dr: Jeff Maharaj STRAP CUTTER ? Ordering Physician: NICKO,JEFF COTA ?Results: ? Date of Service: 04/10/25 ?Follow Up: ? Procedure(s): XR DEXA axial skeleton ?? Accession Number(s): [id number] ? cc: JEFF MAHARAJ NP ? EXAMINATION: ??DXA BONE DENSITY AXIAL ? HISTORY: ??osteoporosis ? TECHNIQUE: [employer] Dual energy absorptiometry (DEXA) ?? of the lumbar spine, total left hip, and femoral neck was performed. ? COMPARISON: Comparison is made with the prior examination dated ?? 08/13/2021. ? FINDINGS: ? The bone mineral density of the lumbar spine is 1.130 with a T-score of ?? -0.4, and a Z-score of 0.8. This is indicative of normal bone mineral ?? density.1 ? This represents a BMD change of .6% compared to the prior exam. ??This ?? is not statistically significant. ? The bone mineral density of the left total hip is 0.802 with a T-score ?? of -1.6, and a Z-score of 0.3. This is indicative of osteopenia. ? This represents a BMD change of -4.9% compared to the prior exam. ??This ?? is statistically significant. ? The bone mineral density of the left femoral neck is 0.701 with a ?? T-score of -2.4, and a Z-score of -0.3. This is indicative of ?? osteopenia. ? This represents a BMD change of -4.6% compared to the prior exam. ? FRACTURE RISK: ?? The FRAX index suggests a ten year probability of major osteoporotic ?? fracture of 18.6%, and of hip fracture 7.0%. ? MM/XR DEXA axial skeleton ?? IMPRESSION: ?? Based on bone mineral density, and according to World Health ?? Organization (WHO) criteria, the diagnosis is consistent with ?? osteopenia. ? All bone density values are in grams per centimeter squared (g/cm2). ?? Statistically, 68% of repeat scans fall within 1 SD (+/- 0.010 g/cm2 ?? for AP spine L1-L4) and 1 SD (+/- 0.012 g/cm2 for femur total) ?? FRAX is a trademark of the [employer]'s ?? [facility] for Metabolic Bone Disease, a World Health Organization (WHO) ?? Collaborating Center. ? Electronically signed by: ??Adalberto Andrew MD ??10/25/2024 11:13 AM EDT ?? RP ? Dictated By: ?Adalberto Andrew MD ? Signed By: ?<Electronically signed by Adalberto Andrew MD in OV> ?10/25/241112 ? DD/ 1030 ? TD/TT: 10/25/24 1100 ? Shop Worker: ? Procedure Note Donotuseinterpreter, Image - 10/25/2024 [facility] [address] [place] [address] Mammography Report Signed Patient: Val Solorzano#: [id number] 2 : 1935cct:[id number] Age/Sex: 88 / FADM Date: 10/25/24 Loc: [facility] Attending Dr: Jeff Maharaj NP Ordering Physician: JEFF MAHARAJesults: Date of Service: 10/25/24Follow Up: Procedure(s): XR DEXA axial skeleton Accession Number(s): [id number] cc: JEFF MAHARAJ NP EXAMINATION: DXA BONE DENSITY AXIAL HISTORY: osteoporosis TECHNIQUE: [employer] Dual energy absorptiometry (DEXA) of the lumbar spine, total left hip, and femoral neck was performed. COMPARISON: Comparison is made with the prior examination dated 08/13/2021. FINDINGS: The bone mineral density of the lumbar spine is 1.130 with a T-score of -0.4, and a Z-score of 0.8. This is indicative of normal bone mineral density.1 This represents a BMD change of .6% compared to the prior exam. This is not statistically significant. The bone mineral density of the left total hip is 0.802 with a T-score of -1.6, and a Z-score of 0.3. This is indicative of osteopenia. This represents a BMD change of -4.9% compared to the prior exam. This is statistically significant. The bone mineral density of the left femoral neck is 0.701 with a T-score of -2.4, and a Z-score of -0.3. This is indicative of osteopenia. This represents a BMD change of -4.6% compared to the prior exam. FRACTURE RISK: The FRAX index suggests a ten year probability of major osteoporotic fracture of 18.6%, and of hip fracture 7.0%. MM/XR DEXA axial skeleton IMPRESSION: Based on bone mineral density, and according to World Health Organization (WHO) criteria, the diagnosis is consistent with osteopenia. All bone density values are in grams per centimeter squared (g/cm2). Statistically, 68% of repeat scans fall within 1 SD (+/- 0.010 g/cm2 for AP spine L1-L4) and 1 SD (+/- 0.012 g/cm2 for femur total) FRAX is a trademark of the [employer] [facility] for Metabolic Bone Disease, a World Health Organization (WHO) Collaborating Center. Electronically signed by: Adalberto Andrew MD 10/25/2024 11:13 AM EDT RP Dictated By: Adalberto Andrew MD Signed By: <Electronically signed by Adalberto Andrew MD in OV> 10/25/24 1113 DD/ 1030 TD/TT: 10/25/24 1100 Shop Worker: [facility] DXA PROCEDURES Final Result * (ABNORMAL) Lipid Panel, Standard (01/03/2024 2:13 PM EDT) Triglycerides 104 <150 mg/dL [facility] Comment:Desirable Triglyceri de: less than 150 mg/dLBorderline High Triglyceride 150-199 mg/dLHigh Triglyceride: 200-499 mg/dLVery High Triglyceride: greater than or equal to 5OO mg/dL Cholesterol 187 <200 mg/dL [facility] Comment:Desirable Cholestero l: less than 200 mg/dLBorderline High Cholesterol: 200-239 mg/dLHigh Cholesterol: greater than 239 mg/dL LDL Cholesterol Calculated 106(H) <100 mg/dL [facility] Comment:Desirable LDL: less than 100 mg/dLNear Optimal/Above Optimal LDL: 110- 129 mg/dLBorderline High LDL: 130-159 mg/dLHigh LDL: 160-189 mg/dLVery High LDL: greater than or equal to 190 mg/dL HDL Cholesterol 61 >40 mg/dL [facility] Comment:Desirable HDL: great er than 40 mg/dL Note: This HDL assay may give artificially low results in patients with liver disease. Blood Venous blood specimen / Unknown 01/03/2024 2:13 PM EDT 01/03/2024 3:53 PM EDT [facility] BLOOD ORDERABLES Final Resul t [facility] [address] [place] [address] [phone] from Last 3 Months or Most Recently Relevant to Health Maintenance Insurance MEDICARE [facility] [place] [id number] Advance Directives Documents on File Type Date Recorded Patient Damper Maker Expl anation Advance Directives and Living Will 09/26/2023 Health Care Proxy 09/26/23 Advance Directives and Living Will 09/26/2023 3:22 PM Life Sustaining Treatment Care Teams Granite Polisher Relationship Specialty Start Date End Date Jeff Maharaj ANP [address] [place] [phone] PCP - General Family Medicine 03/10/21
--- OUTSIDE RECORDS SUMMARY | 2024-10-25 12:02 | XMS_ITS | Encounter Summary ---
Author Organization [employer] Address [address] [place] [address] [address] [place] [address] Care Team Providers Care Contact And Service Clerks Supervisor Name Role Phone Graciela Richards Primary Care Provider Encounter Details Date Type Department Care Team ([facility] st Contact Info) Description 08/09/2022 Telephone [facility] [address] [place] [address] [phone] Graciela Richards ANP [address] [place] [phone] Social History Tobacco Use Types Packs/Day Years Used Date Smoking Tobacco: Never Smokeless Tobacco: Never Alcohol Use Standard Drinks/Week Comments Never 0 (1 standard drink = 0.6 oz pur e alcohol) Comments Unknown Sex and Gender Information Value Date Recorded Sex Assigned at Female 05/17/2022 10:21 AM EDT Legal Sex Female 10:21 AM EDT Gender Identity Female 05/17/2022 10:21 AM EDT Sexual Orientation Straight 05/17/2022 10 :21 AM EDT COVID-19 Exposure Response Date Recorded In the last 10 days, have yo u been in contact with someone who was confirmed or suspected to have Coronavirus/COVID-19? No / Unsure 08/09/2022 1:58 PM EST documented as of this encounter Plan of Treatment Not on file documented as of this encounter Visit Diagnoses Not on filedocumented in this encounter Care Teams Contact And Service Clerks Supervisor Relationship Specialty Start Date End Date Graciela Richards ANP [address] [place] [address] [phone] PCP - General Family Medicine 03/10/21 documented as of this encounter
--- OUTSIDE RECORDS SUMMARY | 2024-10-25 12:02 | XMS_ITS | Encounter Summary ---
Author Organization [employer] Address [address] [facility] [address]t [place] [address] Care Team Providers Care Video Production Specialist Name Role Phone Graciela Richards Primary Care Provider [phone] Reason for Visit * Reason Comments Med Refill Encounter Details Date Type Department Care Team ([facility] st Contact Info) Description 04/20/2024 Refill [facility] [address] [place], [place] [phone] Graciela Richards ANP [address] [place], [place] [phone] Benign essential HTN Social History Tobacco Use Types Packs/Day Years Used Date Smoking Tobacco: Never Passive Smoke Exposure: Never Smokeless Tobacco: Never Alcohol Use Standard Drinks/Week Comments Never 0 (1 standard drink = 0.6 oz pur e alcohol) Depression Answer Date Recorded Patient Health Questionnaire-9 Score 0 01/03/2024 Patient Health Questionnaire-9 Score 0 01/03/2024 Last PHQ-9: Questionnaire Data Not on file 0 01/03/2024 Housing Stability Answer Date Recorded What is your housing situation today? I have margi aslas 05/24/[address] you li [...] Orientation Straight 05/17/2022 10 :21 AM EDT documented as of this encounter Plan of Treatment Not on file documented as of this encounter Visit Diagnoses Diagnosis Benign essential HTN documented in this encounter Additional Health Concerns Assessment Noted Time PHQ-9 Depression Total Score: 0 01/03/20 24 1:18 PM EDT documented as of this encounter Care Teams Video Production Specialist Relationship Specialty Start Date End Date Graciela Richards ANP [address] [place] [phone] PCP - General Family Medicine 03/10/21 documented as of this encounter
== END 2024-10-25 10:17 | disposition home or self-care (01) ==
LOC: HO.MAMMO 10:16
PROVIDERS: PCP Nurse Practitioner Primary Care; Visit Provider Nurse Practitioner Primary Care
DX: M81.0 Age-related osteoporosis without current pathological fracture (principal)
CPT/HCPCS: 77080

== ENCOUNTER → 2024-10-25 10:30 | Outpatient (BNV) | payer MEDICARE, MEDICAID, SELFPAY | PROVIDERS: PCP Nurse Practitioner Primary Care; Visit Provider Radiology Diagnostic Radiology | DX: E28.39 Other primary ovarian failure (principal) | CPT/HCPCS: 77080 ==

== ENCOUNTER 2025-07-03 14:46 | Outpatient (AMB) | payer MEDICARE, MEDICAID, SELFPAY ==
--- NOTE | 2025-07-03 14:56 | A.OFFVIS_ITS ---
Vital Signs 07/03/25 15:06 Height 5 ft 5 in Weight 189 lb BMI 31.4 BP 140/69 H Blood Pressure Location Lt brachial Position Sitting Pulse 70 Intake Visit Reasons: Scalp lesion Intake Note: Patient presents for an assessment for scalp lesion. Pt c/o; no complaints at this time. Ion Exchange Operator Required: No Accompanied by: Daughter Allergies Penicillins (PENICILLINS) Allergy (Severe, Verified 07/03/25 15:06) RASH,LIP SWELLING penicillin V Allergy (Unknown, Verified 07/03/25 15:06) Unknown Medication List - Last Reconciled 07/03/25 by Mihir Hall MD atorvastatin 10 mg PO DAILY benzonatate 100 mg PO TID conjugated estrogens 0 mg vaginal duloxetine 20 mg PO BID isosorbide mononitrate ER 30 mg PO DAILY magnesium oxide 400 mg PO DAILY meclizine 25 mg PO TID PRN melatonin 3 mg PO BEDTIME meloxicam 7.5 mg PO BID memantine 10 mg PO BID olanzapine 5 mg PO BEDTIME trazodone 50 mg PO BEDTIME HPI HPI Scalp lesion: Details: [age] year old female referred for a scalp lesion.She apparently had an excision of a scalp lesion done by a lead process engineer at the [facility] a month ago. She was asked to see me for a wound check. She says that does not feel any lesion anymore. She denies any pain or tenderness or drainage from the excision site. She does have a history of basal cell carcinomas in the past. [facility] Medical History Scalp lesion Fatigue Chest pain Constipation Osteoporosis [place] (obstructive sleep apnea) Asthma Dementia Nonrheumatic mitral valve regurgitation Arthritis Anxiety Renal mass Surgical History History of surgical removal of lesion (~02/01/24) Hx of excision of mass History of colonoscopy History of removal of cyst History of appendectomy Family History Mother Lung cancer Social History Patient Tobacco Use Status: Never used Tobacco Review of Systems Const Denies chills and Denies fever(s) Card Denies chest pain, Denies dyspnea and Denies dyspnea on exertion Resp Denies cough, Denies dyspnea and Denies dyspnea on exertion GI Denies hematochezia and Denies change in bowel habits Denies hematuria Musc Denies back pain and Denies limited range of motion Neuro Denies focal weakness and Denies convulsions Psych Denies depression and Denies mood swings Physical Exam Vital Signs: Last Vital Signs Pulse 70 07/03/25 15:06 BP 140/69 H 07/03/25 15:06 BMI result Body Mass Index 31.4 Const General: comfortable and no acute distress Orientation/consciousness: patient oriented x3 HEENT Other: No scalp lesion noted. Note of a scar from what she describes as a previous excision site a month ago the parietal area with no signs of any infection Neck Neck: Yes no lymphadenopathy Resp Auscultation: clear to auscultation bilaterally Cardio Rhythm: regular rhythm GI Palpation (GI): Soft to palpation, nontender and no guarding Neuro General: patient oriented x3 Assessment & Plan Assessment & Plan (1) Scalp lesion: Code(s): L98.9 - Disorder of the skin and subcutaneous tissue, unspecified Category: Medical Plan: Her daughter says that this was excised by a lead process engineer at the [facility] about a month ago. She says that they were dissected to see me for a wound check. The excision sites seemed to be well healed and I do not see any residual lesion. They do not know what the final pathology is so I asked him to check with the lead process engineer as I do not have access to her path report I told them to come back to me in the office if she notices any lesions or any concerns with regards to the excision site of the scalp. Coding Level of Care Code Est Pt Level 3 (46524) Diagnoses Scalp lesion L98.9
[2025-07-03 15:06] VITALS: BP 140/69; PULSE 70; BMI 31.4
--- OUTSIDE RECORDS SUMMARY | 2025-07-03 19:42 | XMS_ITS | Encounter Summary ---
Author Organization [employer] Address [address] [place] [address] 7[address] [place] [address] Care Team Providers Care Ux Design Manager Name Role Phone Graciela Richards Primary Care Provider [phone] Reason for Visit * Reason Comments Med Refill Encounter Details Date Type Department Care Team ([facility] st Contact Info) Description 12/24/2024 Refill [facility] MEDICINE [address] [place], [place] [phone] Graciela Richards ANP [address] [place], [place] [phone] Benign essential HTN Social History Tobacco Use [...] as of this encounter Plan of Treatment Upcoming Encounters Date Type Department Care Team (Late st Contact Info) Description 08/16/2025 1:00 PM EST Office Visit [facility] MEDICINE [address] [place] [phone] Graciela Richards ANP [address] [place] [address] documented as of this encounter Visit Diagnoses Diagnosis Benign essential HTN documented in this encounter Additional Health Concerns Assessment Noted Time PHQ-9 Depression Total Score: 0 01/03/20 24 1:18 PM EDT documented as of this encounter Care Teams Ux Design Manager Relationship Specialty Start Date End Date Graciela Richards ANP [address] [place] [phone] PCP - General Family Medicine 03/10/21 documented as of this encounter
--- OUTSIDE RECORDS SUMMARY | 2025-07-03 19:42 | XMS_ITS | Encounter Summary ---
Author Organization [employer] Address [address] [place] [address] 7[address] [place] [address] Care Team Providers Care Supervisor [place] Name Role Phone Graciela Richards Primary Care Provider [phone] Reason for Visit * Reason Comments Med Refill Encounter Details Date Type Department Care Team ([facility] st Contact Info) Description 12/23/2024 Refill [facility] MEDICINE [address] [place], [place] [phone] Graciela Richards ANP [address] [place], [place] [phone] Social History Tobacco Use Types Packs/Day Years [...] Description 08/16/2025 1:00 PM EST Office Visit [facility] MEDICINE [address] [place] [phone] Graciela Richards ANP [address] [place] [address] documented as of this encounter Visit Diagnoses Not on filedocumented in this encounter Additional Health Concerns Assessment Noted Time PHQ-9 Depression Total Score: 0 01/03/20 24 1:18 PM EDT documented as of this encounter Care Teams Supervisor [place] Relationship Specialty Start Date End Date Graciela Richards ANP [address] [place] [phone] PCP - General Family Medicine 03/10/21 documented as of this encounter
--- OUTSIDE RECORDS SUMMARY | 2025-07-03 19:42 | XMS_ITS | Encounter Summary ---
Author Organization [employer] Address [address] [place] [address] 7t [place] [address] Care Team Providers Care Billing Machine Operator Name Role Phone Graciela Richards Primary Care Provider [phone] Reason for Visit * Reason Comments Med Refill Encounter Details Date Type Department Care Team ([facility] st Contact Info) Description 04/20/2024 Refill [facility] MEDICINE [address] [place], [place] [phone] Graciela Richards ANP [address] [place], [place] [phone] Benign essential HTN Social History Tobacco Use [...] Description 08/16/2025 1:00 PM EST Office Visit [facility] MEDICINE [address] [place] [phone] Graciela Richards ANP [address] [place] [address] documented as of this encounter Visit Diagnoses Diagnosis Benign essential HTN documented in this encounter Additional Health Concerns Assessment Noted Time PHQ-9 Depression Total Score: 0 01/03/20 24 1:18 PM EDT documented as of this encounter Care Teams Billing Machine Operator Relationship Specialty Start Date End Date Graciela Richards ANP [address] [place] [phone] PCP - General Family Medicine 03/10/21 documented as of this encounter
--- OUTSIDE RECORDS SUMMARY | 2025-07-03 19:42 | XMS_ITS | Clinical Summary ---
Author Organization [employer] Address [address] [place] [address] 7t [place] [address] Care Team Providers Care Flare Stitcher Name Role Phone Graciela Richards Primary Care Provider [phone] Allergies Active Allergy Reactions Criticality Noted Date Comments Amitriptyline Dizziness 03/24/2021 Baclofen Dizziness 05/24/2018 Penicillins 09/01/2010 Other reaction(s): lips swelled, Swelling to Lips, unspecified Tolerates cefepime Medications calcium carbonate 1500 (600 Ca) MG tablet [...] mL into the muscle. 06/30/20 21 Active ketoconazole (NIZOral) 2 % shampooIndicati ons:Seborrheic dermatitis Apply topically 2 (two) times a week. 120 mL 8 07/30/19 25 Active magnesium oxide (Mag-Ox) 400 (240 Mg) MG tablet TAKE 1 TABLET BY MOUTH EVERY DAY 90 tablet 1 03/22/20 25 Active melatonin 3 MG tablet Take 3 mg by mouth if needed at bedtime for sleep. 03/20/20 25 Active clotrimazole (Lotrimin) 1 % creamIndication s:Rash Apply topically 2 times daily. 60 g 2 05/17/20 25 025 Active cholecalciferol (Vitamin D-3) 25 MCG (1000 UT) tablet Take 1,000 Units by mouth Once per day. Active atorvastatin (Lipitor) 10 MG tabletIndicatio ns:Hypercholest erolemia TAKE 1 TABLET BY MOUTH EVERYDAY AT BEDTIME 90 tablet 1 06/12/20 25 Active isosorbide mononitrate ER (Imdur) 30 MG 24 hr tabletIndicatio ns:Benign essential HTN TAKE 1 TABLET BY MOUTH IN THE MORNING. DO NOT CRUSH OR CHEW. 90 tablet 1 06/17/20 25 Active atorvastatin (Lipitor) 10 MG tabletIndicatio ns:Hypercholest erolemia TAKE 1 TABLET BY MOUTH EVERYDAY AT BEDTIME 90 tablet 1 12/14/19 25 025 Discontinued isosorbide mononitrate ER (Imdur) 30 MG 24 hr tabletIndicatio ns:Benign essential HTN TAKE 1 TABLET BY MOUTH IN THE MORNING. DO NOT CRUSH OR CHEW. 90 tablet 1 01/08/20 25 025 Discontinued Active Problems Problem Noted Date Diagnosed Date Nevus of head 04/19/2025 Assessment & Plan (04/19/2025 12:14 PM EDT): Unclear if it is a lentiginous lesion versus malignancy, I will refer to dermatology for resection. I told patient to reach out to her [facility] bereavement counselor, if she can get an needed appointment, I will order a referral. 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) 08/09/2022 Overview (12/15/2022): S/p DIRK/BSO 02/03/2021 Osteoarthritis 08/09/2022 Senile osteoporosis 08/09/2022 Non-rheumatic mitral regurgitation 03/06/2018 Anxiety 05/05/2015 Dementia ([facility]) 05/05/2015 Hypercholesterolemia 05/05/2015 Mild intermittent asthma 05/05/2015 Obstructive sleep apnea syndrome 05/05/2015 Encounters Date Type Department Care Team Description 06/14/2025 Refill [facility] MEDICINE [address] [place] [phone] Graciela Richards ANP Benign essential HTN 06/12/[address] [address] Nancy Stratton, DESIRAE Results; Referral 06/12/2025 Refill [facility] MEDICINE [address] [place] [phone] Graciela Richards ANP Hypercholesterolemia 06/06/2025 Orders Only [facility] [address] [place] [phone] Provider, MD Harriet Basal cell carcinoma (BCC) of scalp (Primary Dx); Nevus of head 05/31/2025 1:30 PM EST Office Visit [address] [address] Maksim Higginbotham MD Neoplasm of uncertain behavior (Primary Dx) 05/31/2025 Travel 05/23/[address] [address] Graciela Richards ANP July05/17/2025 11:15 AM EDT Office Visit [address] [address] Graciela Richards ANP Hypercholesterolemia (Primary Dx); Benign essential HTN; Nevus of head; Rash; Chronic constipation; Senile osteoporosis; Chronic bilateral low back pain without sciatica 05/17/2025 Travel 05/16/[address] [address] Graciela Richards ANP chart prep 05/09/2025 Patient Outreach [place] [phone] Graciela Richards ANP Pre-visit Planning (Pre-visit planning - LVM ) 04/22/[address] [address] Melody Mejia MD 04/19/2025 11:30 AM EDT Office Visit [address] [address] Melody Mejia MD Nevus of head (Primary Dx) 04/19/2025 Travel 04/18/[address] [address] Graciela Richards ANP Chart Prep 04/17/[address] [address] Graciela Richards ANP 04/15/[address] [address] Graciela Richards ANP Referral 04/08/[address] [address] Graciela Richards ANP chart prep from Last 3 Months Immunizations Immunization Administration Dates Next Due INFLUENZA VACCINE QUADRIVALE NT RECOMBINANT PRESERVATIVE FREE RIV4 04/24/2020 Influenza High-dose Quadriva lent Preservative Free 09/13/2023,04/13/2022,04/15/2021 Influenza injectable quadriv alent preservative free 08/17/2016 Influenza, High Dose Seasona l, Preservative Free 05/07/2025 Influenza, IIV3, injectable 08/18/2017,1 ,05/06/2014,06/25 Influenza, Split [...] Answer Date Recorded Patient Health Questionnaire-9 Score 2 05/17/2025 Patient Health Questionnaire-9 Score 2 05/17/2025 Last PHQ-9: Questionnaire Data Not on file 1 Housing Stability Answer Date Recorded What is your housing situation today? I have margi salas 04/02/[address] you li ve. Do you have problems with any of the following? None of the above 04/02/2025 Food Insecurity Answer Date Recorded Within the past 12 months, y ou worried that your food would run out before you got money to buy more: Never True 04/02/2025 Within the past 12 months,th e food you bought just didn't last and you didn't have enough money to get more: Never True Transportation Answer Date Recorded In the past 12 months, has l ack of transportation kept you from medical appts, meetings, work or from getting things needed for daily living? No 04/02/2025 Utilities Answer Date Recorded In the past 12 months, has t he electric, gas, oil or water company threatened to shut off services in your home? No 04/02/2025 Depression Answer Date Recorded Patient Health Questionnaire-2 Score 0 05/17/2025 Internet Access Answer Date Recorded Internet Access Q1 Yes 04/02/2025 Internet Access Q2 Not on file 04/02/2025 Comments Unknown Sex and Gender Information Value Date Recorded Sex Assigned at Female 05/17/2022 10:21 AM EDT Legal Sex Female 10:21 AM EDT Gender Identity Female 05/17/2022 10:21 AM EDT Sexual Orientation Straight 05/17/2022 10 :21 AM EDT Last Filed Vital Signs Vital Sign Reading Time Taken Comments Blood Pressure 124/80 05/31/2025 1:35 PM EST Pulse 68 05/31/2025 1:35 PM EST Temperature 37.1 C (98.7 F) 05/31/2025 1:35 PM EST Respiratory Rate 18 05/31/2025 1:35 PM EST Oxygen Saturation 93% 04/19/2025 11:34 AM EDT Inhaled Oxygen Concentration - - Weight 88.2 kg (194 lb 8 oz) 05/31/2025 1:35 PM EST Height 160 cm (5' 3 ) 05/31/2025 1:35 PM EST Body Mass Index 34.45 05/31/2025 1:35 PM EST Plan of Treatment Upcoming Encounters Date Type Department Care Team (Late st Contact Info) Description 08/16/2025 1:00 PM EST Office Visit [facility] MEDICINE [address] [place], [place] [phone] Graciela Richards ANP [address] [place], [place] [phone] Health Maintenance Due Date Last Done Comments Zoster Vaccines (1 of 2) 12/04/1985 RSV Patients and Patients Aged 60 years or older (1 - 1-dose 75+ series) 12/04/2010 Derm Melanoma Skin Check 01/24/2025 07/27/2024 COVID-19 Vaccine ( season) 2025 02/19/2022, 04/15/2021, 09/18/2020, Additional history exists Alcohol/Substance Use Screening 10/01/2025 10/01/2024 SDOH Screening 04/02/2026 04/02/2025 Depression Screening 05/17/2026 05/17/2025, 05/17/20 25 Tobacco Screening 05/17/2026 05/17/2025 Lipid Panel 01/02/2029 01/03/2024, 11/0 03/2022, 10/06/2020 DTaP/Tdap/Td Vaccines (3 - Td or Tdap) 04/13/2032 04/13/2022, 03/15/2012 Pneumococcal Vaccine: 50+ Years Completed 09/26/2023, 08/17/2016, 09/01/2015, Additional history exists Influenza Vaccine Completed 05/07/2025, , 09/13/2023, Additional history exists HIB Vaccines Aged Out [...] patient's age to complete this topic Meningococcal B Vaccine Aged Out No l onger eligible based on patient's age to complete [...] Procedure Name Priority Date/Time Associated Diagnosis Comments AMB REFERRAL TO DERMATOLOGY Urgent 05/31/2025 Nevus of head LIPID PANEL, STANDARD Routine 01/03/2024 2:13 PM EDT Hypercholesterolemi a from Last 3 Months or Most Recently Relevant to Health Maintenance Results * Referral to [facility] Derm Skin Adult (05/31/2025) us Melody Mejia MD OUTPATIENT REFERRAL STEVAN MOLINA Final Result * (ABNORMAL) Lipid Panel, Standard (01/03/2024 2:13 PM EDT) Triglycerides 104 <150 mg/dL [facility] Comment:Desirable Triglyceri de: less than 150 mg/dLBorderline High Triglyceride 150-199 mg/dLHigh Triglyceride: 200-499 mg/dLVery High Triglyceride: greater than or equal to 5OO mg/dL Cholesterol 187 <200 mg/dL [facility] Comment:Desirable Cholestero l: less than 200 mg/dLBorderline High Cholesterol: 200-239 mg/dLHigh Cholesterol: greater than 239 mg/dL LDL Cholesterol Calculated 106(H) <100 mg/dL [facility] Comment:Desirable LDL: less than 100 mg/dLNear Optimal/Above Optimal LDL: 110- 129 mg/dLBorderline High LDL: 130-159 mg/dLHigh LDL: 160-189 mg/dLVery High LDL: greater than or equal to 190 mg/dL HDL Cholesterol 61 >40 mg/dL [facility] Comment:Desirable HDL: great er than 40 mg/dL Note: This HDL assay may give artificially low results in patients with liver disease. Blood Venous blood specimen / Unknown 01/03/2024 2:13 PM EDT 01/03/2024 3:53 PM EDT [facility] BLOOD ORDERABLES Final Resul t [facility] [address] [place] [address] [phone] from Last 3 Months or Most Recently Relevant to Health Maintenance Insurance MEDICARE [facility] FULL [facility] STANDARD Advance Directives Documents on File Type Date Recorded Patient Sole Buffer Expl anation Advance Directives and Living Will 09/26/2023 Health Care Proxy 09/26/23 Advance Directives and Living Will 09/26/2023 3:22 PM Life Sustaining Treatment Care Teams Flare Stitcher Relationship Specialty Start Date End Date Graciela Richards ANP [address] [place] [phone] PCP - General Family Medicine 03/10/21
--- OUTSIDE RECORDS SUMMARY | 2025-07-03 19:42 | XMS_ITS | Encounter Summary ---
Author Organization [email or web address] Address [address] [place] [address] 7 [place] [address] Care Team Providers Care Casting Machine Adjuster Name Role Phone Graciela Richards Primary Care Provider [phone] Encounter Details Date Type Department Care Team ([facility] Contact Info) Description 08/09/[address] [phone] Graciela Richards ANP [address] [place] [address] [phone] Social History Tobacco Use Types Packs/Day Years [...] Encounters Date Type Department Care Team (Late Contact Info) Description 08/16/2025 1:00 PM EST Office Visit [address] [phone] Graciela Richards ANP [address] [place] [address] [phone] documented as of this encounter Visit Diagnoses Not on filedocumented in this encounter Care Teams Casting Machine Adjuster Relationship Specialty Start Date End Date Graciela Richards ANP [address] [place] [address] PCP - General Family Medicine 03/10/21 documented as of this encounter
== END 2025-07-03 15:33 | disposition home or self-care (01) ==
LOC: HO.HGS 14:47
PROVIDERS: PCP Nurse Practitioner Primary Care; Visit Provider Surgery
DX: L98.9 Disorder of the skin and subcutaneous tissue, unspecified (principal)
CPT/HCPCS: 99213

== ENCOUNTER → 2025-07-03 14:46 | Outpatient (BNVA) | payer MEDICARE, MEDICAID, SELFPAY | PROVIDERS: PCP Nurse Practitioner Primary Care; Visit Provider Surgery | DX: Z48.817 Encounter for surgical aftercare following surgery on the skin and subcutaneous tissue (principal); L98.9 Disorder of the skin and subcutaneous tissue, unspecified | CPT/HCPCS: 99212 ==